=== PATIENT | female | born 1985 ===

== ENCOUNTER 2019-02-13 17:44 | Inpatient (IN) | payer BC, OTHER ==
[2019-02-13 18:11] VITALS: BMI 37.4
[2019-02-13] MEDS: Lactated Ringer's 1,000 ML IV SCH (19:00)
[2019-02-13] MEDS ORDERED: Misoprostol 200 MCG TAB ONE (19:58)
[2019-02-13] MEDS ORDERED: Promethazine HCl 25 MG/ML VIAL IM PRN (20:05)
[2019-02-13] MEDS ORDERED: Ondansetron PF 4 MG/2 ML Vial IVP PRN (20:05)
[2019-02-13] MEDS ORDERED: Acetaminophen 500 MG TAB PO PRN (20:05)
[2019-02-13] MEDS ORDERED: Zolpidem Tartrate 5 MG TAB PO PRN (20:05)
[2019-02-13] MEDS ORDERED: Misoprostol 200 MCG TAB RC PRN (20:15)
[2019-02-13] MEDS ORDERED: Misoprostol 200 MCG TAB VAG SCH (20:15)
[2019-02-13] MEDS ORDERED: Acetaminophen/Codeine 30-300mg Tablet PO PRN (20:15)
[2019-02-13] MEDS ORDERED: Ibuprofen 800 MG TAB PO PRN (20:15)
[2019-02-13] MEDS ORDERED: NS w/ Oxytocin 10 units 500 ML IV SCH ×2 (20:15)
[2019-02-13] MEDS ORDERED: Fleet Enema 133 ML BOT PR SCH (20:15)
[2019-02-13] MEDS ORDERED: Lidocaine 1% (PF) 30 ML VIAL SC PRN (20:15)
[2019-02-13] MEDS ORDERED: Docusate 100 MG CAP PO SCH (21:00)
[2019-02-13] MEDS ORDERED: ALPRAZolam 1 MG TAB PO SCH (22:00)
[2019-02-13 22:50] LABS: Mean Corpuscular HGB CONC 34.5 g/dL (32.0-36.0); Mean Corpuscular Hemoglobin 31.1 pg (27.0-31.0); Mean Corpuscular Volume 90.2 fL (78.0-98.0); Mean Platelet Volume 7.5 fL (7.4-10.4); Platelet Count 197 thou/uL (130-400); RBC Distribution Width 11.8 % (11.5-14.5); Red Blood Cell (RBC) Count 3.84 mill/uL (4.20-5.40); White Blood Cell (WBC) Count 7.5 thou/uL (4.8-10.8)
[2019-02-13 23:28] LABS: HBSAg Index 0.18 S/CO (0-0.99); Hep B Surf Ag Non-Reactive S/CO (NonReactive); Syphilis Antibody Nonreactive (Nonreactive); Syphilis Antibody Index 0.03 S/CO (<1.00 Non-Reactive)
[2019-02-14] MEDS: Lactated Ringer's 1,000 ML IV SCH ×2 (00:14→07:58)
[2019-02-14] MEDS: Butorphanol Tartrate 1 MG/ML VIAL SLOW IVP PRN ×5 (01:47→09:22)
[2019-02-14] MEDS ORDERED: Methylergonovine 0.2 MG/ML VIAL ONE (13:47)
[2019-02-14] MEDS ORDERED: Methylergonovine 0.2 MG TAB ONE (13:48)
[2019-02-14] MEDS: Methylergonovine 0.2 MG TAB PO SCH ×3 (13:50→16:53)
== END 2019-02-14 18:39 | disposition home or self-care (01) | DRG 779 ==
LOC: L&D 17:44
PROVIDERS: ADMIT Obstetrics & Gynecology; ATTEND Obstetrics & Gynecology
DX: O03.9 Complete or unspecified spontaneous abortion without complication (principal); O36.4XX0 Maternal care for intrauterine death, not applicable or unspecified; Z3A.21 21 weeks gestation of pregnancy
CPT/HCPCS: 36415; 85027; 86780; 86850; 86900; 86901; 87340; J0595; J2210